=== PATIENT | male | born 1965 | race Caucasian/White ===

== ENCOUNTER 2017-09-28 17:15 | Emergency (ER) | payer MEDICARE, MEDICAID, SELFPAY ==
[2017-09-28 17:55] VITALS: BP 139/85; PULSE 97; RESP 22; TEMP 36.4; O2SAT 97; BMI 33.4
--- NOTE | 2017-09-28 18:05 | HMH.EDUTC ---
[facility] [place] Clinical Impression: Tobacco abuse Acute bronchitis Qualifiers: Bronchitis organism: unspecified organism Qualified Code(s): J20.9 - Acute bronchitis, unspecified Disposition: Home, Self-Care Condition on Discharge: Good Instructions: DI for Acute Bronchitis, How to Quit Tobacco Products Additional Instructions: * STOP SMOKING!!!! Sounds like you have a plan with chantix. Stick with it!!! * start antibiotic today. Be sure to complete entire prescription even if feeling better. * Monitor Temp. Tylenol every 4 hours as needed no more then 5 times a day or 4000mg in 24 hours and/or ibuprofen every 6 hours as needed no more then 3200mg in 24 hours (as long as your primary care doctor has told you that it is ok to take both) for fever/aches/pain. ER if fever no less than 101 despite tylenol and ibuprofen * humidifier/vaporizer/hot steamy shower * Inhaler or neb every 4-6 hours as needed like we discussed. Should help open airways and improve cough, wheezing, shortness of breath. * Mucinex during the day for your cough and cough suppressant only at night. Be sure to drink lots of water. Insurance may not cover a prescription of mucinex. Might be cheaper to get 400mg tablets and take 2 tablets morning, midday and evening all with lots of water. * Promethazine DM cough syrup will cause drowsiness. Use it only at night. No driving, operating machinery or caring for small children after taking it. * Start steroid tomorrow. You had injection in clinic for today. Helps with inflammation therefore, cough and wheezing. Follow directions on package. Rvwd side effects. Pt reports they have taken them before. Follow up IMMEDIATELY for new or worsening symptoms OR no noticeable improvement over the next 48-72 hours. 911 for difficulty breathing. Prescriptions: Albuterol Sulfate [Albuterol 0.083% 2.5mg/3mL neb] 2.5 mg IH Q4H PRN #1 box PRN Reason: Shortness Of Breath Or Wheezing Azithromycin [Z-Brian 250mg Tab] 250 mg PO UD DOSE PK #6 tab predniSONE [Prednisone 20mg Tab] 20 mg PO BID #10 tab Promethazine/Dextromethorphan [Promethazine-Dm Syrup] 5 - 10 ml PO HSP PRN #120 ml PRN Reason: Cough Referrals: Geremias Campos MD [Primary Care Provider] - Time of Disposition: 20:11 Medical Decision Making Vital Signs: 09/28/17 17:55 Temperature 97.6 F Temperature Source Temporal Artery Scan Pulse Rate [Brachial] 97 H Respiratory Rate 22 Blood Pressure [Right Arm] 139/85 Blood Pressure Mean [Right Arm] 103 Blood Pressure Source [Right Arm] Automatic Cuff Blood Pressure Position [Right Arm] Sitting 02 Sat by Pulse Oximetry 97 Oxygen Delivery Method Room Air - Lab Data Lab Results 09/28/17 17:52: Influenza Type A Ag Negative, Influenza Type B Ag Negative 09/28/17 18:30: WBC 9.9, RBC 5.34, Hgb 16.7, Hct 49.4, MCV 92.5, MCH 31.2, MCHC 33.8, RDW 12.5, Plt Count 165, MPV 8.0, Neut % (Auto) 65.9, Lymph % (Auto) 24.4, [place] % (Auto) 7.4, Eos % (Auto) 1.7, Baso % (Auto) 0.5, Neut # (Auto) 6.5, Lymph # (Auto) 2.4, [place] # (Auto) 0.7, Eos # (Auto) 0.2, Baso # (Auto) 0.0 09/28/17 18:30: Sodium 136, Potassium 3.5, Chloride 102, Carbon Dioxide 25, Anion Gap 12.5, BUN 8, Creatinine 1.17, Estimated Creat Clear 104, Estimated GFR > 60, Est GFR ( Amer) > 60, Glucose 135 H, Calcium 9.0, Total Bilirubin 0.8, AST 20, ALT 50, Alkaline Phosphatase 79, Total Protein 7.8, Albumin 4.3, Globulin 3.5 H, Albumin/Globulin Ratio 1.2 Result diagrams: 09/28/17 18:30 09/28/17 18:30 Orders (Tests/Meds): ED MEDICATIONS Discontinued Medications Generic Name Dose Route Start Last Admin Trade Name Freq PRN Reason Stop Dose Admin Albuterol Sulfate 2.5 mg 09/28/17 18:17 Albuterol 0.083% 2.5mg/3ml Neb IH 09/28/17 18:18 ONCE ONE Albuterol/Ipratropium 3 ml 01/05/18 18:42 Duoneb 3ml Neb IH 09/28/17 18:43 ONCE ONE Methylprednisolone Sodium Succinate 125 mg 09/28/17 18:17 Solu-Medrol 125mg/2ml
[2017-09-28 18:09] LABS: UTC Influenza A Antigen Negative (Negative); UTC Influenza B Antigen Negative (Negative)
--- NOTE | 2017-09-28 18:17 | XR_ITS ---
XR chest 2V HISTORY: ITS.REASON: cough w bodyaches and chills x2 weeks, +tob COPD ORDERING PHYSICIAN: Gallito Almazan PATIENT AGE: 52 years COMPARISON: None available FINDINGS: The cardiomediastinal silhouette and pulmonary vascularity are within normal limits. The lungs are clear without infiltrates, suspicious nodules, or pleural effusions. Hyperinflation with attenuation of the peripheral pulmonary vessels consistent with obstructive chronic bronchitis No acute bony abnormalities. IMPRESSION: COPD, no acute infiltrate
--- NOTE | 2017-09-28 18:17 | ED_ITS ---
[facility] – [place] Disposition Clinical Impression: Tobacco abuse Acute bronchitis Qualifiers: Bronchitis organism: unspecified organism Qualified Code(s): J20.9 - Acute bronchitis, unspecified Disposition: Home, Self-Care Condition on Discharge: Good Instructions: DI for Acute Bronchitis, How to Quit Tobacco Products Additional Instructions: * STOP SMOKING!!!! Sounds like you have a plan with chantix. Stick with it!!! * start antibiotic today. Be sure to complete entire prescription even if feeling better. * Monitor Temp. Tylenol every 4 hours as needed no more then 5 times a day or 4000mg in 24 hours and/or ibuprofen every 6 hours as needed no more then 3200mg in 24 hours (as long as your primary care doctor has told you that it is ok to take both) for fever/aches/pain. ER if fever no less than 101 despite tylenol and ibuprofen * humidifier/vaporizer/hot steamy shower * Inhaler or neb every 4-6 hours as needed like we discussed. Should help open airways and improve cough, wheezing, shortness of breath. * Mucinex during the day for your cough and cough suppressant only at night. Be sure to drink lots of water. Insurance may not cover a prescription of mucinex. Might be cheaper to get 400mg tablets and take 2 tablets morning, midday and evening all with lots of water. * Promethazine DM cough syrup will cause drowsiness. Use it only at night. No driving, operating machinery or caring for small children after taking it. * Start steroid tomorrow. You had injection in clinic for today. Helps with inflammation therefore, cough and wheezing. Follow directions on package. Rvwd side effects. Pt reports they have taken them before. Follow up IMMEDIATELY for new or worsening symptoms OR no noticeable improvement over the next 48-72 hours. 911 for difficulty breathing. Prescriptions: Albuterol Sulfate [Albuterol 0.083% 2.5mg/3mL neb] 2.5 mg IH Q4H PRN #1 box PRN Reason: Shortness Of Breath Or Wheezing Azithromycin [Z-Brian 250mg Tab] 250 mg PO UD DOSE PK #6 tab predniSONE [Prednisone 20mg Tab] 20 mg PO BID #10 tab Promethazine/Dextromethorphan [Promethazine-Dm Syrup] 5 - 10 ml PO HSP PRN #120 ml PRN Reason: Cough Referrals: Geremias Campos MD [Primary Care Provider] - Time of Disposition: 20:11 Medical Decision Making Vital Signs: 09/28/17 17:55 Temperature 97.6 F Temperature Source Temporal Artery Scan Pulse Rate [Brachial] 97 H Respiratory Rate 22 Blood Pressure [Right Arm] 139/85 Blood Pressure Mean [Right Arm] 103 Blood Pressure Source [Right Arm] Automatic Cuff Blood Pressure Position [Right Arm] Sitting 02 Sat by Pulse Oximetry 97 Oxygen Delivery Method Room Air - Lab Data Lab Results 09/28/17 17:52: Influenza Type A Ag Negative, Influenza Type B Ag Negative 09/28/17 18:30: WBC 9.9, RBC 5.34, Hgb 16.7, Hct 49.4, MCV 92.5, MCH 31.2, MCHC 33.8, RDW 12.5, Plt Count 165, MPV 8.0, Neut % (Auto) 65.9, Lymph % (Auto) 24.4 , [place] % (Auto) 7.4, Eos % (Auto) 1.7, Baso % (Auto) 0.5, Neut # (Auto) 6.5, Lymph # (Auto) 2.4, [place] # (Auto) 0.7, Eos # (Auto) 0.2, Baso # (Auto) 0.0 09/28/17 18:30: Sodium 136, Potassium 3.5, Chloride 102, Carbon Dioxide 25, Anion Gap 12.5, BUN 8, Creatinine 1.17, Estimated Creat Clear 104, Estimated GFR > 60, Est GFR ( Amer) > 60, Glucose 135 H, Calcium 9.0, Total Bilirubin 0.8, AST 20, ALT 50, Alkaline Phosphatase 79, Total Protein 7.8, Albumin 4.3, Globulin 3.5 H, Albumin/Globulin Ratio 1.2 Result diagrams: 09/28/17 18:30 09/28/17 18:30 Orders (Tests/Meds): ED ME
[2017-09-28 18:58] LABS: Basophils % 0.5 % (0.1-2.0); Eosinophils # 0.2 K/mm3 (0.0-0.4); Eosinophils % 1.7 % (0.1-12.0); Hematocrit 49.4 % (42.0-52.0); Hemoglobin 16.7 g/dL (14.1-18.0); Lymphocytes # 2.4 K/mm3 (0.7-4.5); Lymphocytes % 24.4 K/mm3 (10-50); Mean Corpuscular HGB Conc 33.8 g/dL (31.8-35.4); Mean Corpuscular Hemoglobin 31.2 pg (27.0-31.2); Mean Corpuscular Volume 92.5 fl (80-94); Monocytes # 0.7 K/mm3 (0.1-1.0); Monocytes % 7.4 % (1.7-9.3); Neutrophils # 6.5 K/mm3 (1.8-7.8); Neutrophils % 65.9 % (37.0-80.0); Platelet Count 165 K/mm3 (142-424); Red Blood Count 5.34 M/mm3 (4.60-6.20); Red Cell Distribution Width 12.5 % (11.5-17.5); White Blood Count 9.9 K/mm3 (4.8-10.8)
[2017-09-28 19:19] LABS: Alanine Aminotransferase 50 U/L (12-78); Albumin Level 4.3 gm/dL (3.4-5.0); Albumin/Globulin Ratio 1.2 (1.1-1.8); Alkaline Phosphatase 79 U/L (46-116); Anion Gap 12.5 mEq/L (5-15); Aspartate Amino Transferase 20 U/L (15-37); Bilirubin,Total 0.8 mg/dL (0.2-1.0); Blood Urea Nitrogen 8 mg/dL (7-18); Carbon Dioxide 25 mmol/L (21.0-32.0); Chloride 102 mmol/L (98-107); Creatinine Clearance Estimated 104 mL/min (0-300); Creatinine,Serum 1.17 mg/dL (0.70-1.30); Estimated Glomerular Filt Rate > 60 ml/min (>60); GFR (African American) > 60 ML/MIN (>60); Globulin 3.5 gm/dl (1.3-3.2); Glucose 135 mg/dL (74-106); Potassium 3.5 mmoL/L (3.5-5.1); Sodium 136 mmol/L (136-145); Total Protein,Serum 7.8 gm/dL (6.4-8.2)
== END 2017-09-28 20:16 | disposition home or self-care (01) ==
PROVIDERS: Emergency Provider Nurse Practitioner Family; Family Provider Emergency Medicine; PCP Emergency Medicine
DX: J20.9 Acute bronchitis, unspecified (principal); J44.0 Chronic obstructive pulmonary disease with (acute) lower respiratory infection; F17.210 Nicotine dependence, cigarettes, uncomplicated; Z79.899 Other long term (current) drug therapy
CPT/HCPCS: 71046; 80053; 85025; 87276; 87804; 96372; 99201; 99281; 99291

== ENCOUNTER → 2018-04-22 13:41 | Outpatient (CLI) | payer MEDICARE, MEDICAID, SELFPAY ==
--- NOTE | 2018-04-22 13:49 | CT_ITS ---
CT lung screening EXAM: CT LUNG LOW DOSE WO CONTRAST HISTORY: 53-year-old male with 30 pack-year smoking history asymptomatic ITS.REASON: CURRENT TOBACCO USE ORDERING PHYSICIAN: Robert Rodriguez PATIENT AGE: 53 years COMPARISON: None TECHNIQUE: The exam was performed on a GE Light Speed [address] scanner using 2.90 mGy CTDI. A low dose helical CT CHEST was performed on a multi-detector scanner. All CT scans at the facility use one or more dose reduction, viz: automated exposure control, ma/kV adjustment per patient size (including targeted exams where dose is matched to indication, i.e. head), or iterative reconstruction technique. The LDCT was performed in a facility that meets the criteria for the screening program. Data regarding this exam was submitted to ACR which is an approved registry. The order for this exam indicates that it came as a result of a lung cancer screening counseling shard decision-making visit that included all the elements required of such a visit including smoking cessation. The radiologist interpreting this exam meets the CMS criteria for the LDCT lung cancer screening program. The exam is reported using the Lung-RADS classification scale and reported to the ACR registry. NOTE: This study was performed for the specific purposes of lung cancer screening and is not an alternative to diagnostic chest CT. RADIATION DOSE: CTDI vol(CT dose Index-volume) = 2.90mG DLP (Dose Length Product) = 119.33 mGcm FINDINGS: There is a calcified granuloma in the right lung base. Calcified nodules also present in the left upper lobe laterally. Adjacent to this is a 3 mm noncalcified nodule. There is a 3 mm noncalcified left upper lobe nodule posteriorly and a 3 mm noncalcified left upper lobe nodule posterior laterally. Incidental note made of coronary artery calcifications. There is mild hyperinflation with attenuation of the peripheral vessels and bronchial thickening consistent with obstructive chronic bronchitis. No mediastinal or hilar mass. IMPRESSION: 1. Lung RADS Category: 2, benign 2. Other findings: Coronary artery calcifications, COPD, oh granulomatous disease RECOMMENDATIONS: 12 month LDCT follow-up
== END ==
PROVIDERS: Family Provider Emergency Medicine; PCP Family Medicine; Visit Provider Family Medicine
DX: Z12.2 Encounter for screening for malignant neoplasm of respiratory organs (principal); Z87.891 Personal history of nicotine dependence

== ENCOUNTER 2019-02-20 19:04 | Emergency (ER) | payer MEDICARE, MEDICAID, SELFPAY ==
[2019-02-20 19:14] VITALS: BP 148/95; PULSE 77; RESP 18; TEMP 36.7; O2SAT 100; BMI 28.1
[2019-02-20 19:50] LABS: Microscopic, Urine URINE MICROSCOPIC (MICROSCOPIC)
[2019-02-20 19:52] LABS: Appearance,Urine CLEAR (Clear); Basophils % 0.5 % (0.1-2.0); Bilirubin,Urine Negative (Negative); Blood, Urine Negative (Negative); Color,Urine YELLOW (Yellow); Eosinophils # 0.2 K/mm3 (0.0-0.4); Eosinophils % 2.2 % (0.1-12.0); Glucose,Urine (UA) Negative (Negative); Hematocrit 50.2 % (42.0-52.0); Ketones,Urine Negative (Negative); Leukocyte Esterase,Urine Negative (Negative); Lymphocytes # 3.5 K/mm3 (0.7-4.5); Lymphocytes % 36.4 % (10-50); Mean Corpuscular Hemoglobin 31.7 pg (27.0-31.2); Mean Corpuscular Volume 88.3 fl (80-94); Mean Platelet Volume 7.5 fl (7.4-10.4); Monocytes # 0.6 K/mm3 (0.1-1.0); Monocytes % 5.7 % (1.7-9.3); Neutrophils # 5.3 K/mm3 (1.8-7.8); Neutrophils % 55.3 % (37.0-80.0); Nitrate,Urine Negative (Negative); Platelet Count 198 K/mm3 (142-424); Protein,Urine Negative (Negative); Red Blood Count 5.69 M/mm3 (4.60-6.20); Red Cell Distribution Width 12.1 % (11.5-17.5); Urobilinogen,Urine 0.2 EU/dl (0.2); White Blood Count 9.6 K/mm3 (4.8-10.8)
--- NOTE | 2019-02-20 19:56 | PC.NURSE ---
Pt daughter remains at bedside with pt, curtain open, pt in gown and belongings taken away.
[2019-02-20 19:58] LABS: Hemoglobin 17.8 g/dL (14.1-18.0); Squamous Epithelial Cell,Urine Occasional #/hpf (0-5); WBC,Urine Occasional #/hpf (0-3)
--- NOTE | 2019-02-20 19:58 | PC.NURSE ---
Pt tearful hear with daughter for S.I. pt was disrobed and place in gown, he states he is suicidal, but has no plan. Pt has stressers in life, but not willing to talk about them. Pt is cooperative at this time.
[2019-02-20 19:59] LABS: Bacteria,Urine Trace /lpf
[2019-02-20 20:01] LABS: Amphetamine/Metha Screen,Urine Positive ng/mL (<1000); Barbiturates Screen,Urine Negative ng/mL (<200); Benzodiazepines Screen,Urine Negative ng/mL (<200); Cannabinoid Screen,Urine Positive ng/mL (<50); Cocaine Screen,Urine Negative ng/mL (<300); Methadone Screen,Urine Negative ng/mL (<300); Opiate Screen,Urine Negative ng/mL (<300); Phencyclidine Screen,Urine Negative ng/mL (<25)
--- NOTE | 2019-02-20 20:12 | PC.NURSE ---
dr Campos speaking with pt family
[2019-02-20 20:15] LABS: Alanine Aminotransferase 38 U/L (12-78); Albumin Level 3.9 gm/dL (3.4-5.0); Albumin/Globulin Ratio 1.2 (1.1-1.8); Alkaline Phosphatase 89 U/L (46-116); Anion Gap 12.7 mEq/L (5-15); Aspartate Amino Transferase 19 U/L (15-37); Bilirubin,Total 0.5 mg/dL (0.2-1.0); Blood Urea Nitrogen 10 mg/dL (7-18); Calcium 9.2 mg/dL (8.5-10.1); Carbon Dioxide 26 mmol/L (21.0-32.0); Chloride 105 mmol/L (98-107); Creatinine Clearance Estimated 97 mL/min (50-200); Creatinine,Serum 1.04 mg/dL (0.70-1.30); Estimated Glomerular Filt Rate 75 ml/min (>60); GFR (African American) 90 ML/MIN (>60); Globulin 3.3 gm/dl (1.3-3.2); Glucose 103 mg/dL (74-106); Potassium 3.7 mmoL/L (3.5-5.1); Salicylate 6.3 mg/dL (2.8-20.0); Sodium 140 mmol/L (136-145); Thyroid Stimulating Hormone 2.01 uIU/ml (0.358-3.740); Total Protein,Serum 7.2 gm/dL (6.4-8.2)
--- NOTE | 2019-02-20 20:15 | HMH.EDPSYCH ---
ED Disposition Clinical Impression: Depression Qualifiers: Depression Type: major depressive disorder Major depression recurrence: unspecified whether recurrent Active/Remission status: currently active Major depression episode severity: moderate Qualified Code(s): F32.1 - Major depressive disorder, single episode, moderate Disposition: Home, Self-Care Condition on Discharge: Good Instructions: Depression Additional Instructions: going with family to inpt facility voluntary Referrals: Geremias Campos MD [Primary Care Provider] - - Critical Care Critical Care Time: No Attestation: On 02/20/19, the high probability of a clinically significant, sudden or life threatening deterioration of the following system(s) required my full and direct attention, intervention and personal management. The time I documented below is in addition to time spent performing reported procedures but includes the following listed in this critical care notation. Medical Decision Making - Medical Records Medical records reviewed: Yes: I reviewed the patient's medical records. - Emigdio Inquiry Pt receiving controlled substance: No Vital Signs: 02/20/19 19:14 Temperature 98.0 F Temperature Source Oral Pulse Rate [Left] 77 Respiratory Rate 18 Blood Pressure [Left Arm] 148/95 H Blood Pressure Mean [Left Arm] 112 Blood Pressure Source [Left Arm] Automatic Cuff Blood Pressure Position [Left Arm] Sitting 02 Sat by Pulse Oximetry 100 Oxygen Delivery Method Room Air - Lab Data Lab results reviewed: Yes: I reviewed the patient's lab results. Lab Results 02/20/19 19:45: Urine Color Yellow, Urine Appearance Clear, Urine pH 7.0, Ur Specific [place] 1.020, Urine Protein Negative, Urine Glucose (UA) Negative, Urine Ketones Negative, Urine Blood Negative, Urine Nitrate Negative, Urine Bilirubin Negative, Urine Urobilinogen 0.2, Ur Leukocyte Esterase Negative, Urine WBC Occasional, Ur Squamous Epith Cells Occasional, Urine Bacteria Trace 02/20/19 19:45: WBC 9.6, RBC 5.69, Hgb 17.8, Hct 50.2, MCV 88.3, MCH 31.7 H, MCHC 36.0 H, RDW 12.1, Plt Count 198, MPV 7.5, Neut % (Auto) 55.3, Lymph % (Auto) 36.4, [place] % (Auto) 5.7, Eos % (Auto) 2.2, Baso % (Auto) 0.5, Neut # (Auto) 5.3, Lymph # (Auto) 3.5, [place] # (Auto) 0.6, Eos # (Auto) 0.2, Baso # (Auto) 0.0 02/20/19 19:45: Urine Opiates Screen Negative, Urine Methadone Screen Negative, Ur Barbituates Screen Negative, Ur Phencyclidine Scrn Negative, Ur Amphetamines Screen Positive H, U Benzodiazepines Scrn Negative, Urine Cocaine Screen Negative, U Marijuana (THC) Screen Positive H Result diagrams: 02/20/19 19:45 Orders (Tests/Meds): ORDERS Category Date Time Status Acetaminophen Stat Lab 02/20/19 19:45 Received Comprehensive Metabolic Panel Stat Lab 02/20/19 19:45 Received Ethyl Alcohol Stat Lab 02/20/19 19:45 Received Salicylate Stat Lab 02/20/19 19:45 Received TSH [Thyroid Stimulating Hormone] Stat Lab 02/20/19 19:45 Received Psych HPI - General Chief Complaint: Psychiatric Symptoms Stated Complaint: SI Time Seen by Provider: 02/20/19 20:00 Mode of Arrival: Ambulatory Source of Information: Patient, Relative, Medical Record Limitations: No Limitations Description of Symptoms (Recalled from ER Triage Doc. by RN): Pt states he feels overwhelmed and states he is Suicidal at this time, no plan, family at bedside - History of Present Illness HPI Narrative: pt with progressive depression and has suicidal thought but no plan - no hx of overdose or pschy admit - pt has family who have made inpt arrangements at center and pt and family wish to go - he denies being suicidal at this time MD complaint: suicidal ideation, feels depressed Onset (ago): week(s) Duration: getting worse History of same: No Relieving factors: none Exacerbating factors: none Context: significant life stressor Associated psychiatric symptoms: depression Associated symptoms: denies other symptoms Treatments prio
[2019-02-20 20:19] LABS: Acetaminophen 0 ug/mL (10-30); Ethyl Alcohol 0 mg/dL (0-99)
[2019-02-20 20:47] VITALS: BP 120/85; PULSE 65; RESP 20; TEMP 37; O2SAT 98
== END 2019-02-20 20:48 | disposition home or self-care (01) ==
PROVIDERS: Emergency Provider Emergency Medicine; PCP Emergency Medicine
DX: F32.1 Major depressive disorder, single episode, moderate (principal); J44.9 Chronic obstructive pulmonary disease, unspecified; F17.210 Nicotine dependence, cigarettes, uncomplicated
CPT/HCPCS: 80053; 80305; 80329; 81001; 84443; 85025; 99282